=== PATIENT | female | born 1960 | race Caucasian/White ===

== ENCOUNTER 2017-01-04 10:53 | Emergency (ER) | payer OTHER ==
--- NOTE | 2017-01-04 12:02 | ED CRITICAL CARE ---
History of Present Illness General Chief Complaint: Cardiopulmonary Resuscitation Stated Complaint: CARDIAC ARREST Source: family, EMS, Epic Exam Limitations: clinical condition Vital Signs & Intake/Output Vital Signs & Intake/Output Vital Signs Date Time Temp Pulse Resp B/P Pulse O2 O2 Flow FiO2 Ox Delivery Rate 01/04 1055 0 01/04 1055 Ventilator Triage Note: BIBA IN CARDIAC ARREST. WITNESSED ARREST AT HOME BY FAMILY. PER EMS WAS IN ASYSTOLE UPON THIER ARRIVAL. INTUBATED IN FIELD WITH #7 ETT AT 22CM [facility]ATH[place], RECIEVED 6 DOSES OF EPINEPHRINE. --WAS ON NO MEDS AT HOME, BEING WORKED UP FOR MASS ON JUGULAR. WAS NOT FEELING WELL PAST FEW DAYS. UPON ARRIVAL TO HOSPITAL WAS INTUBATED WITH CPR IN PROGRESS. SEE CODE SHEET FOR FURTHER DETAILS Triage Nurses Notes Reviewed? yes Unable To Obtain Hx Due To: patient unresponsiveness Onset: Just prior to arrival Duration: minute(s): (45), continues in ED Timing: single episode today Injury Environment: home Severity: severe Pain Location: none LMP (ages 10-50): post menopausal : No Patient currently breastfeeds: No HPI: 5 months prior to admission spouse reports patient complained of lower left abdominal pain decreased appetite and fatigue weight loss. 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 She was also found to be hypercalcemic. Prior to admission she collapsed unresponsive not breathing. EMS responded started ACLS protocol for asystole. Past History Travel History Traveled to [place] past 21 day No Medical History Any Pertinent Medical History? 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 No Review of Systems Review of Systems Constitutional: Reports: see HPI, weakness. Eyes: Reports: no symptoms. Ears, Nose, Throat, Mouth: Reports: no symptoms. Respiratory: Reports: no symptoms. Cardiovascular: Reports: no symptoms. Gastrointestinal/Abdominal: Reports: see HPI, abdominal pain. Genitourinary: Reports: no symptoms. Musculoskeletal: Reports: see HPI, neck pain. Skin: Reports: no symptoms. Neurological/Psychological: Reports: no symptoms. All Other Systems: Reviewed and Negative Comments Reported by spouse Physical Exam Physical Exam General Appearance: severe distress, obese Head: atraumatic, normal appearance Eyes: Bilateral: other (pupils fixed dilated). Ears, Nose, Throat, Mouth: dry mucous membranes Neck: full range of motion, right cervical adenopathy Respiratory: mechanical breath sounds Cardiovascular: no heart sounds Peripheral Pulses: 0 carotid (R), 0 carotid (L), 0 femoral (R), 0 femoral (L) Gastrointestinal: soft, non-tender Back: normal inspection Extremities: normal range of motion Neurologic/Psych: disoriented x 3 Skin: pallor Core Measures ACS in differential dx? No CVA/TIA Diagnosis: No Severe Sepsis Present: No Septic Shock Present: No Progress Differential Diagnoses I considered the following diagnoses in my evaluation of the patient: SVC syndrome metastatic pelvic cancer pericardial effusion hypercalcemia Plan of Care: pronounced 1055AM Initial ED EKG: none Rhythm Strip: asystole Departure Departure Time of Disposition: 1055 Disposition: Condition: Stable Clinical Impression Primary Impression: Cardiac asystole Secondary Impressions: Metastatic cancer, SVC syndrome Referrals: ISHA GRAJEDA,KARISHMA Klein (PCP/Family) Departure Forms: General Discharge Information Comments [place] declined case package completed PMD notified Family notified Critical Care Note Critical Care Note Critical Care Time: 30-74 min (35)
== END 2017-01-04 10:55 | disposition expired ==
LOC: ERH 10:53
DX: I46.9 Cardiac arrest, cause unspecified (principal); C79.9 Secondary malignant neoplasm of unspecified site; I87.1 Compression of vein